=== PATIENT | female | born 1970 | race Caucasian/White ===

== ENCOUNTER 2020-10-24 00:44 | Inpatient (IN) | payer SELFPAY ==
[~2020-10-24] VITALS: Ht 157.5 cm; Wt 58.7 kg
[~2020-10-24 00:44] MED LIST: CLIN300 PO; Cleocin HCl150 MG PO; ESCI5; HYDACE5 PO; LEVSOD100; LEVSOD150; Naprosyn500 MG PO; RANI150
[2020-10-24 05:22] LABS: BASOPHILS ABSOLUTE AUTO 0.03 K/mm3 (0.00-0.23); BASOPHILS PERCENT AUTO 0 % (0-2); EOSINOPHILS ABSOLUTE AUTO 0.05 K/mm3 (0.00-0.68); EOSINOPHILS PERCENT AUTO 1 % (0-6); Hematocrit 47.1 % (33.0-51.0); IMMATURE GRAN ABSOLUTE AUTO 0.05 K/mm3 (0.00-0.10); IMMATURE GRAN PERCENT AUTO 1 % (0-1); LYMPHOCYTES ABSOLUTE AUTO 1.46 K/mm3 (0.84-5.20); LYMPHOCYTES PERCENT AUTO 13 % (21-46); MONOCYTES ABSOLUTE AUTO 0.64 K/mm3 (0.16-1.47); MONOCYTES PERCENT AUTO 6 % (4-13); Mean Corpuscular HGB 28.4 pg (26.0-34.0); Mean Corpuscular HGB Conc 31.8 g/dL (31.5-36.5); Mean Corpuscular Volume 89 fL (80-100); NEUTROPHILS ABSOLUTE AUTO 8.82 K/mm3 (1.96-9.15); NEUTROPHILS PERCENT AUTO 80 % (41-73); Platelet Count 200 K/mm3 (150-400); RDW Coefficient Variation 13.8 % (11.7-14.2); RDW Standard Deviation 44.5 fL (35.1-46.3); Red Blood Cell Count 5.29 M/mm3 (3.80-5.20); White Blood Cell Count 11.05 K/mm3 (4.00-11.30)
[2020-10-24 05:23] LABS: Mean Platelet Volume 13.6 fL (9.1-12.4)
[2020-10-24 05:52] LABS: Alanine Aminotransfer (ALT/SGP 34 U/L (12-78); Albumin, Blood 3.6 g/dL (3.4-5.0); Albumin/Globulin Ratio 1.1 (0.8-1.8); Alk Phos 76 U/L (50-136); Anion Gap 10 mmol/L (6-16); Aspartate Aminotrans (AST/SGOT 37 U/L (12-37); Bilirubin, Total 1.3 mg/dL (0.1-1.0); Blood Urea Nitrogen 16 mg/dL (8-24); Bun/Creatinine Ratio 14.2 (12.0-20.0); CO2, Blood 22 mmol/L (21-32); Calcium, Blood 9.8 mg/dL (8.5-10.1); Chloride, Blood 107 mmol/L (98-108); Creatinine, Blood 1.13 mg/dL (0.40-1.00); Globulin, Blood 3.4 g/dL (2.2-4.0); Glomerular Filtration Rate 54 (60-); Glucose, Blood 117 mg/dL (70-99); Magnesium, Blood 1.9 mg/dL (1.6-2.4); Potassium, Blood 3.4 mmol/L (3.5-5.5); Sodium, Blood 139 mmol/L (136-145); Troponin I <0.015 ng/mL (0.000-0.040)
[2020-10-24 06:58] LABS: Influenza A, PCR Negative (NEGATIVE); Influenza B, PCR Negative (NEGATIVE); Resp Syncytial Virus, PCR Negative (NEGATIVE); SARS-Cov-2 (COVID-19) PCR, MMC Negative (NEGATIVE)
[2020-10-24 07:48] LABS: Source, Urine Clean Catch
[2020-10-24 07:51] LABS: Bilirubin, Urine Neg (Neg); Blood, Urine 4+ (Neg); Color, Urine Yellow (P-Yellow); Glucose Qualitative, Urine Neg (Neg); Ketones, Urine Neg (Neg); Leukocyte Esterase, Urine 1+ (Neg); Nitrite, Urine Neg (Neg); Protein, Urine 4+ (Neg); Urobilinogen, Urine NORM (Normal)
[2020-10-24 08:00] LABS: Appearance, Urine Hazy (Clear); Bacteria Rare /hpf; Squamous Epithelial Cells Rare /hpf (Few); White Blood Cells, Urine 0-2 /hpf (0-5)
[2020-10-24] MEDS ORDERED: ONDA4ODT MM (10:01)
[2020-10-24] MEDS ORDERED: Pepcid20 MG PO (10:01)
[2020-10-24 11:21] LABS: U Amphetamine Screen Not Detected; U Barbituate Screen Not Detected; U Benzodiazapine Screen Not Detected; U Buprenorphine Screen Not Detected; U Cannabinoids Screen Not Detected; U Cocaine Screen Not Detected; U Methadone Screen Not Detected; U Methamphetamine Screen Not Detected; U Opiates Screen Not Detected; U Oxycodone Screen Not Detected; U Phencyclidine Screen Not Detected; U Propoxyphene Screen Not Detected
[2020-10-24] MEDS ORDERED: FAMO20 PO (12:32)
[2020-10-24] MEDS ORDERED: ONDA4ODT SL (12:33)
--- NOTE | 2020-10-24 19:10 | NUR ---
PT ARRIVED TO THE MEDICAL FLOOR AROUND 1330 VIA WHEELCHAIR, PT UP WITHOUT ASSISTANCE TO THE BED STEADY ON HER FEET, THE PT APPEARS TO BE BREATHING EASILY ON RA AT THIS TIME, THE PT WAS ORIENTED TO THE ROOM LAYOUT AND CALL SYSTEM, THE PT TODAY C/O BOTH CHEST AND ABDOMINAL PAIN, THE PT WAS MEDICATED FOR PAIN WITH GOOD RESULTS, A HEATING PAD WAS ALSO APPLIED TO THE ABD, CALL LIGHT IN REACH, NO OTHER CHANGES NOTICED THIS SHIFT
[2020-10-25 04:21] LABS: BASOPHILS ABSOLUTE AUTO 0.06 K/mm3 (0.00-0.23); BASOPHILS PERCENT AUTO 1 % (0-2); EOSINOPHILS ABSOLUTE AUTO 0.03 K/mm3 (0.00-0.68); EOSINOPHILS PERCENT AUTO 0 % (0-6); Hematocrit 41.4 % (33.0-51.0); Hemoglobin 13.1 g/dL (11.5-16.0); IMMATURE GRAN ABSOLUTE AUTO 0.03 K/mm3 (0.00-0.10); IMMATURE GRAN PERCENT AUTO 0 % (0-1); LYMPHOCYTES ABSOLUTE AUTO 2.09 K/mm3 (0.84-5.20); LYMPHOCYTES PERCENT AUTO 28 % (21-46); MONOCYTES ABSOLUTE AUTO 0.73 K/mm3 (0.16-1.47); MONOCYTES PERCENT AUTO 10 % (4-13); Mean Corpuscular HGB 28.4 pg (26.0-34.0); Mean Corpuscular HGB Conc 31.6 g/dL (31.5-36.5); Mean Corpuscular Volume 90 fL (80-100); Mean Platelet Volume 12.8 fL (9.1-12.4); NEUTROPHILS ABSOLUTE AUTO 4.61 K/mm3 (1.96-9.15); NEUTROPHILS PERCENT AUTO 61 % (41-73); NRBC ABSOLUTE 0.04 K/mm3 (0.00-0.02); NRBC Auto 0.5 /100 WBC (0.0-0.2); Platelet Count 175 K/mm3 (150-400); RDW Standard Deviation 45.3 fL (35.1-46.3); Red Blood Cell Count 4.62 M/mm3 (3.80-5.20); White Blood Cell Count 7.55 K/mm3 (4.00-11.30)
[2020-10-25 04:41] LABS: Albumin/Globulin Ratio 1.1 (0.8-1.8); Bilirubin, Total 0.9 mg/dL (0.1-1.0); Calcium, Blood 8.2 mg/dL (8.5-10.1); Creatinine, Blood 1.46 mg/dL (0.40-1.00); Globulin, Blood 2.8 g/dL (2.2-4.0); Potassium, Blood 3.8 mmol/L (3.5-5.5); Total Protein, Blood 5.8 g/dL (6.4-8.2); Troponin I 0.028 ng/mL (0.000-0.040)
--- NOTE | 2020-10-25 04:48 | NUR ---
SHIFT SUMMARY ASSUMED CARE OF PT AT 1900. PT IS A/OX4. HEART SOUNDS REGULAR, TELE SHOWS SINUS. LUNG SOUNDS CLEAR. PT IS INDEPENDENT TO BATHROOM. PT URINE IS DARK AND RED TINGED, PT REPORTS STARTING HER PERIOD AND IS IN THE BEGINNING STAGES OF MENOPAUSE. PT C/O PAIN IN HER ABD, MEDICATED PER EMAR. CALL LIGHT IN REACH, BED IN LOWEST POSITON, WILL CONTINUE TO MONITOR.
--- NOTE | 2020-10-25 11:48 | NUR ---
Echocardiogram completed.
--- NOTE | 2020-10-25 16:35 | NUR ---
PT IS A/OX3, PLEASANT AND COOPERATIVE, THE PT IS UP IND IN HER ROOM, THE PT TODAY COMPLAINED MOSTLY OF A HEADACHE WITH SOME PRESSURE IN HER EARS, THE PT WAS GIVEN TYLENOL THIS AM AND THE NITRO PASTE WAS DC'D THE PT REPORTS THAT HER HEADACHE IS STILL THERE BUT SLOWLY IMPROVING OVER THE DAY, THE PT HAS BEEN ABLE TO SLEEP OFF AND ON T/O THE DAY, CALL LIGHT IN REACH, WILL CONTINUE TO MONITOR AND ASSESS FOR CHANGES
--- NOTE | 2020-10-26 04:09 | NUR ---
SHIFT SUMMARY ASSUMED CARE OF PT AT 1900. PT IS A/OX4. HEART SOUNDS REGULAR, TELE SHOWS SINUS. LUNG SOUNDS CLEAR. PT IS INDEPENDENT TO BATHROOM. URINE STILL HAS SOME BLOOD IN IT DUE TO MENSTATION. PT C/O INDEGESTION, CALLED HOSPITALIST AND ORDERED TUMS BUT PT WAS ASLEEP ON REASSESSMENT. NO OTHER ACUTE EVETNS DURING THE NIGHT. PT SLEPT T/O THE NIGHT. CALL LIGHT IN REACH, BED IN LOWEST POSTION, WILL CONTINUE TO MONITOR.
[2020-10-26 05:38] LABS: BASOPHILS ABSOLUTE AUTO 0.03 K/mm3 (0.00-0.23); BASOPHILS PERCENT AUTO 0 % (0-2); EOSINOPHILS ABSOLUTE AUTO 0.02 K/mm3 (0.00-0.68); EOSINOPHILS PERCENT AUTO 0 % (0-6); Hematocrit 43.2 % (33.0-51.0); Hemoglobin 13.5 g/dL (11.5-16.0); IMMATURE GRAN ABSOLUTE AUTO 0.02 K/mm3 (0.00-0.10); IMMATURE GRAN PERCENT AUTO 0 % (0-1); LYMPHOCYTES ABSOLUTE AUTO 1.55 K/mm3 (0.84-5.20); LYMPHOCYTES PERCENT AUTO 23 % (21-46); MONOCYTES ABSOLUTE AUTO 0.65 K/mm3 (0.16-1.47); MONOCYTES PERCENT AUTO 10 % (4-13); Mean Corpuscular HGB Conc 31.3 g/dL (31.5-36.5); Mean Corpuscular Volume 89 fL (80-100); NEUTROPHILS ABSOLUTE AUTO 4.42 K/mm3 (1.96-9.15); NEUTROPHILS PERCENT AUTO 66 % (41-73); Platelet Count 183 K/mm3 (150-400); RDW Coefficient Variation 13.6 % (11.7-14.2); RDW Standard Deviation 45.1 fL (35.1-46.3); Red Blood Cell Count 4.83 M/mm3 (3.80-5.20); White Blood Cell Count 6.69 K/mm3 (4.00-11.30)
[2020-10-26 05:45] LABS: Mean Platelet Volume 13.4 fL (9.1-12.4)
[2020-10-26 06:06] LABS: Albumin, Blood 3.1 g/dL (3.4-5.0); Anion Gap 7 mmol/L (6-16); Blood Urea Nitrogen 16 mg/dL (8-24); Bun/Creatinine Ratio 11.4 (12.0-20.0); CO2, Blood 31 mmol/L (21-32); Calcium, Blood 8.2 mg/dL (8.5-10.1); Chloride, Blood 104 mmol/L (98-108); Glomerular Filtration Rate 42 (60-); Glucose, Blood 91 mg/dL (70-99); Phosphorus, Blood 2.5 mg/dL (2.5-4.9); Potassium, Blood 3.6 mmol/L (3.5-5.5); Sodium, Blood 142 mmol/L (136-145)
[2020-10-26 09:09] LABS: HBSAG SCREEN Negative (Negative); HEP A AB, IGM Negative (Negative); HEP B CORE AB, IGM Negative (Negative); HEP C VIRUS AB <0.1 (0.0-0.9)
--- NOTE | 2020-10-26 16:45 | NUR ---
1445 PT TO [facility]. 1520 REPORT GIVEN TO MICHELLE IN PCU. 1530 BELONGINGS AND CHART TAKEN TO [facility] 13 BY RENATA.
--- NOTE | 2020-10-26 18:21 | NUR ---
PT ARRIVED IN THE UNIT FROM [facility] PT WAS TRANSFERRED FROM [facility] POST ANGIO, REPORT RECEIVED FROM NILDA RICHARDSON. PT ANGIO WAS CLEAR PER REPORT PT HAS RIGHT RADIAL AND BRACHIAL ACCESS SITE, BRACHIAL ACCESS SITE HAS LAURENCE DRESSING SOILED WITH MODERATE AMOUNT OF BLOOD NO FURTHER BLEEDING NOTED, RIGHT RADIAL WITH TR BAND 9CC OF AIR SITE SOFT NON TENDER NO HEMATOMA NOTED. VITALS STABLE HRR SINUS FOSTER, BP SYSTOLIC 120-140'S, SATS ABOVE 95% ON RA, AFEBRILE. PT C/O RIGHT ARM PAIN TYLENOL GIVEN WITH NO HELP, TRAMADOL GIVEN RECENTLY AWAITING TO TAKE EFFECT. PT SBA FOR TRANFERS ABLE TO MAKE NEEDS KNOWN, WILL MONITOR. TO REPORT TO ONCOMING SHIFT
--- NOTE | 2020-10-27 04:12 | NUR ---
IV INSERTION LEFT IV IN FOREARM INSERTED PRIOR TO START OF SHIFT. DID NOT INSERT THIS IV.
[2020-10-27 04:15] LABS: BASOPHILS ABSOLUTE AUTO 0.04 K/mm3 (0.00-0.23); BASOPHILS PERCENT AUTO 1 % (0-2); EOSINOPHILS ABSOLUTE AUTO 0.07 K/mm3 (0.00-0.68); EOSINOPHILS PERCENT AUTO 1 % (0-6); Hematocrit 45.7 % (33.0-51.0); Hemoglobin 14.4 g/dL (11.5-16.0); IMMATURE GRAN ABSOLUTE AUTO 0.02 K/mm3 (0.00-0.10); IMMATURE GRAN PERCENT AUTO 0 % (0-1); LYMPHOCYTES ABSOLUTE AUTO 1.42 K/mm3 (0.84-5.20); LYMPHOCYTES PERCENT AUTO 27 % (21-46); MONOCYTES ABSOLUTE AUTO 0.61 K/mm3 (0.16-1.47); MONOCYTES PERCENT AUTO 11 % (4-13); Mean Corpuscular HGB 28.7 pg (26.0-34.0); Mean Corpuscular HGB Conc 31.5 g/dL (31.5-36.5); Mean Corpuscular Volume 91 fL (80-100); Mean Platelet Volume 12.6 fL (9.1-12.4); NEUTROPHILS ABSOLUTE AUTO 3.17 K/mm3 (1.96-9.15); NEUTROPHILS PERCENT AUTO 60 % (41-73); Platelet Count 208 K/mm3 (150-400); RDW Standard Deviation 46.4 fL (35.1-46.3); Red Blood Cell Count 5.02 M/mm3 (3.80-5.20); White Blood Cell Count 5.33 K/mm3 (4.00-11.30)
[2020-10-27 04:44] LABS: Albumin, Blood 3.1 g/dL (3.4-5.0); Anion Gap 6 mmol/L (6-16); Blood Urea Nitrogen 24 mg/dL (8-24); Bun/Creatinine Ratio 18.6 (12.0-20.0); CO2, Blood 30 mmol/L (21-32); Calcium, Blood 8.4 mg/dL (8.5-10.1); Chloride, Blood 103 mmol/L (98-108); Creatinine, Blood 1.29 mg/dL (0.40-1.00); Glomerular Filtration Rate 46 (60-); Glucose, Blood 87 mg/dL (70-99); Potassium, Blood 3.7 mmol/L (3.5-5.5); Sodium, Blood 139 mmol/L (136-145)
--- NOTE | 2020-10-27 05:41 | NUR ---
SHIFT SUMMARY PT SLEPT T/O SHIFT. PT ALERT AND ORIENTED X 4. PT ABLE TO TURN SELF IN BED NEEDED. R RADIAL AND BRACHIAL SITES WNL. HR BRADYCARDIC WHILE SLEEPING AND RESTING. PT ASYMPTOMATIC. BP STABLE. PT REPORTS NO CP OR PRESSURE. PT REPORTS DECREASE IN PAIN AT SURGICAL SITE. OXYGEN SATURATION ABOVE 92% ON RA. WILL CONTINUE TO MONITOR UNTIL REPORT GIVEN TO FREDERICK RICHARDSON.
[2020-10-27] MEDS ORDERED: ASPI81CH PO (15:52)
[2020-10-27] MEDS ORDERED: Prinivil10 MG PO (15:52)
[2020-10-27] MEDS ORDERED: FURO40 PO (15:52)
[2020-10-27] MEDS ORDERED: EUTHYROX50 MCG PO (15:52)
[2020-10-27] MEDS ORDERED: TUMS500 MG PO (15:52)
[2020-10-27] MEDS ORDERED: METO25ER PO (15:53)
[2020-10-27] MEDS ORDERED: POTA10T PO (15:54)
--- NOTE | 2020-10-27 16:36 | NUR ---
PATIENT AND DAUGHTER PROVIDED DISCHARGE INFO REGARDING FOLLOW UP PLANS, ANGIO SITE CARE AND PRECAUTIONS, MEDICATION INFO AND REASONS TO RETURN TO THE HOSPITAL. PATIENT VERBALIZED UNDERSTANDING, NO SIGNS OF ACUTE DISTRESS.
== END 2020-10-27 16:50 | disposition home or self-care (01) | DRG 286 ==
LOC: ER 00:44 → PCU 11:52 → MEDS 11:52 → PCU 10-26 15:47
PROVIDERS: Emergency Medicine; ADMIT Internal Medicine
PROC: 4A023N8 Measurement of Cardiac Sampling and Pressure, Bilateral, Percutaneous Approach (ICD-10-PCS; principal; 2020-10-26)
PROC: B211YZZ Fluoroscopy of Multiple Coronary Arteries using Other Contrast (ICD-10-PCS; 2020-10-26)
DX: I13.0 Hypertensive heart and chronic kidney disease with heart failure and stage 1 through stage 4 chronic kidney disease, or unspecified chronic kidney disease (principal); I50.21 Acute systolic (congestive) heart failure; N17.9 Acute kidney failure, unspecified; E03.9 Hypothyroidism, unspecified; Z20.828 Contact with and (suspected) exposure to other viral communicable diseases; N18.30 Chronic kidney disease, stage 3 unspecified; K21.9 Gastro-esophageal reflux disease without esophagitis; E87.6 Hypokalemia; I44.7 Left bundle-branch block, unspecified; I42.8 Other cardiomyopathies; I27.20 Pulmonary hypertension, unspecified; I07.1 Rheumatic tricuspid insufficiency; Z88.1 Allergy status to other antibiotic agents; Z88.0 Allergy status to penicillin; Z88.2 Allergy status to sulfonamides; Z88.8 Allergy status to other drugs, medicaments and biological substances
CPT/HCPCS: 0241U; 36415; 71045; 71260; 76937; 80053; 80069; 80074; 81001; 83690; 83735; 83880; 84443; 84484; 84703; 85025; 85379; 87086; 93005; 93010; 93306; 93460; 96361; 96374; 96375; 99152; 99285-25; A9270; A9270-GY; C1769; C1894; C9113; J1170; J1644; J1650; J1940; J2250; J2405; J3010; J7030; J7040; J7120; Q9967

== ENCOUNTER 2021-02-18 13:21 | Observation (INO) | payer OTHER ==
[~2021-02-18] VITALS: Ht 157.5 cm; Wt 51.3 kg
[~2021-02-18 13:21] MED LIST changes: +ASPI81CH PO; +EUTHYROX50 MCG PO; +FAMO20 PO; +FURO40 PO; +METO25ER PO; +ONDA4ODT MM; +ONDA4ODT SL; +POTA10T PO; +Pepcid20 MG PO; +Prinivil10 MG PO; +TUMS500 MG PO
[2021-02-18] MEDS ORDERED: SPIRONOLACTONE25 MG PO (14:40)
[2021-02-18 14:49] LABS: BASOPHILS ABSOLUTE AUTO 0.02 K/mm3 (0.00-0.23); BASOPHILS PERCENT AUTO 1 % (0-2); EOSINOPHILS ABSOLUTE AUTO 0.04 K/mm3 (0.00-0.68); EOSINOPHILS PERCENT AUTO 1 % (0-6); Hematocrit 40.5 % (33.0-51.0); Hemoglobin 13.3 g/dL (11.5-16.0); IMMATURE GRAN ABSOLUTE AUTO 0.01 K/mm3 (0.00-0.10); IMMATURE GRAN PERCENT AUTO 0 % (0-1); LYMPHOCYTES ABSOLUTE AUTO 1.73 K/mm3 (0.84-5.20); LYMPHOCYTES PERCENT AUTO 44 % (21-46); MONOCYTES ABSOLUTE AUTO 0.36 K/mm3 (0.16-1.47); MONOCYTES PERCENT AUTO 9 % (4-13); Mean Corpuscular HGB 28.7 pg (26.0-34.0); Mean Corpuscular HGB Conc 32.8 g/dL (31.5-36.5); Mean Corpuscular Volume 88 fL (80-100); Mean Platelet Volume 11.8 fL (9.1-12.4); NEUTROPHILS ABSOLUTE AUTO 1.82 K/mm3 (1.96-9.15); NEUTROPHILS PERCENT AUTO 46 % (41-73); Platelet Count 176 K/mm3 (150-400); RDW Standard Deviation 51.3 fL (35.1-46.3); Red Blood Cell Count 4.63 M/mm3 (3.80-5.20); White Blood Cell Count 3.98 K/mm3 (4.00-11.30)
[2021-02-18 15:23] LABS: Alanine Aminotransfer (ALT/SGP 18 U/L (12-78); Albumin, Blood 4.3 g/dL (3.4-5.0); Albumin/Globulin Ratio 1.2 (0.8-1.8); Alk Phos 48 U/L (50-136); Anion Gap 8 mmol/L (6-16); Aspartate Aminotrans (AST/SGOT 9 U/L (12-37); Bilirubin, Total 0.6 mg/dL (0.1-1.0); Blood Urea Nitrogen 52 mg/dL (8-24); Bun/Creatinine Ratio 22.1 (12.0-20.0); CO2, Blood 23 mmol/L (21-32); Calcium, Blood 9.5 mg/dL (8.5-10.1); Chloride, Blood 109 mmol/L (98-108); Creatinine, Blood 2.35 mg/dL (0.40-1.00); Globulin, Blood 3.6 g/dL (2.2-4.0); Glomerular Filtration Rate 23 (60-); Glucose, Blood 82 mg/dL (70-99); Potassium, Blood 4.9 mmol/L (3.5-5.5); Sodium, Blood 140 mmol/L (136-145); Total Protein, Blood 7.9 g/dL (6.4-8.2); Troponin I <0.015 ng/mL (0.000-0.040)
[2021-02-18] MEDS ORDERED: ACET500 PO (16:34)
--- NOTE | 2021-02-18 17:09 | NUR ---
Pt arrived to PCU 14.
--- NOTE | 2021-02-18 18:28 | NUR ---
Pt suddenly c/o pressure like chest discomfort, radiating from sternum to left upper chest and to left shoulder. States it is increasing from 5/10 to 7/10 since arrival to PCU 14. She is still wearing the NTG paste applied in the ED. monitor worker tech reports sinus bradycardia, 44 bpm, and blood pressure is stable, spo2 [address] elevation in lead V1 per telemarketer supervisor is slightly elevated, 0.11 to 0.13 since arrival. Otherwise no changes noted on telemetry. Pt has only oral oxycodone ordered for pain. Call to Dr. Casey; one new order received for morphine unresponsive to other measures for pain relief. At this time, pt is receiving her oral medications, IVF are infusing as ordered, and she is eating and drinking without nausea. No dypnea, no diaphoresis, and she does not appear anxious.
[2021-02-18 19:55] LABS: Source, Urine Voided
[2021-02-18 19:59] LABS: Bilirubin, Urine Neg (Neg); Blood, Urine 2+ (Neg); Glucose Qualitative, Urine Neg (Neg); Ketones, Urine Neg (Neg); Leukocyte Esterase, Urine 1+ (Neg); Nitrite, Urine Neg (Neg); Protein, Urine Neg (Neg); Urobilinogen, Urine NORM (Normal)
[2021-02-18 20:01] LABS: Appearance, Urine Clear (Clear); Color, Urine Pale Yellow (P-Yellow)
[2021-02-18 20:09] LABS: Bacteria Few /hpf; Red Blood Cells, Urine 0-2 /hpf (0-2); Squamous Epithelial Cells Few /hpf (Few)
[2021-02-19 04:06] LABS: Hematocrit 34.3 % (33.0-51.0); Hemoglobin 11.2 g/dL (11.5-16.0); Mean Corpuscular HGB 28.7 pg (26.0-34.0); Mean Corpuscular HGB Conc 32.7 g/dL (31.5-36.5); Mean Corpuscular Volume 88 fL (80-100); Mean Platelet Volume 12.1 fL (9.1-12.4); Platelet Count 152 K/mm3 (150-400); RDW Coefficient Variation 15.9 % (11.7-14.2); RDW Standard Deviation 51.5 fL (35.1-46.3); White Blood Cell Count 3.82 K/mm3 (4.00-11.30)
[2021-02-19 04:40] LABS: Anion Gap 5 mmol/L (6-16); Blood Urea Nitrogen 49 mg/dL (8-24); CO2, Blood 24 mmol/L (21-32); Calcium, Blood 8.3 mg/dL (8.5-10.1); Chloride, Blood 114 mmol/L (98-108); Creatinine, Blood 2.13 mg/dL (0.40-1.00); Glomerular Filtration Rate 26 (60-); Glucose, Blood 86 mg/dL (70-99); Potassium, Blood 4.9 mmol/L (3.5-5.5); Sodium, Blood 143 mmol/L (136-145); Troponin I <0.015 ng/mL (0.000-0.040)
--- NOTE | 2021-02-19 05:08 | NUR ---
SHIFT SUMMARY PT RESTED WELL THROUGH THE NIGHT. ALERT AND ORIENTED - ABLE TO MAKE NEEDS KNOWN. SATS >90% ON ROOM AIR. TELE SINUS FOSTER - DROPPING LOW 35, ASYMPTOMATIC. VOIDS WITH STAND BY ASSIST TO THE BATHROOM - UA COLLECTED RESULTING NEGATIVE. NO BM. DID C/O OF A LITTLE NAUSEA AT THE START OF SHIFT, MEDICATED WITH TUMS AND ZOFRAN - SEE EMAR. NO EMESIS. VSS. NO C/O PAIN. CALL LIGHT WITIN REACH, BED IN LOWEST POSITION. WILL CONTINUE TO MONITOR.
--- NOTE | 2021-02-19 07:52 | NUR ---
Pt states that she is feeling less pressure/discomfort in her chest this morning; it is 2/10 now. STates that she had some nausea last night, and took TUMS which relieved both the nausea and the chest discomfort. STates IV zofran also helped. Pt states that she has needed to take TUMS regularly since October, whereas before it was only rarely that she needed it. This morning blood pressure noted low. PT states that she has no dizzyness/lightheadedness right now, but she does often have it, and has to make her position changes slowly in order to prevent it. States this morning she has a good appetite. Ambulatory to the bathroom at this time to void. Blood pressure noted low but pt denies any lightheadedness/dizzyness with the activity.
--- NOTE | 2021-02-19 12:52 | NUR ---
Pt states she is experiencing same kind of discomfort from abdomen, going up esphagous, described as pressure and aching, like gas pain. She was also given miralax for bowel care this morning. Given TUMS at her request, which she says helped yesterday.
--- NOTE | 2021-02-19 18:09 | NUR ---
Kendra has had minimal pain today, some burning/aching in her upper mid abdomen, which states radiates up to her esophagus. Relief with TUMS following eating her meals. NO nausea. Appetite good. Ambulatory to the bathroom as needed to void, without any pain or discomfort. Heart rate 40s, and blood pressures are soft, but pt denies any dizzyness/lightheadedness with the hypotension.
--- NOTE | 2021-02-19 20:47 | NUR ---
ASSUMED CARE PT IS ALERT AND ORIENTED. VITALS ARE STABLE WITH SATS OF 100% ON ROOM AIR. DENIES SOB. IS REPORTING SOME CHEST DISCOMFORT FROM GI AND A HEADACHE OF 5/10. SHE IS UP WITH SBA TO THE BATHROOM. CALL LIGHT WITHIN REACH. WILL CONTINUE TO MONITOR.
[2021-02-20 03:30] LABS: Hematocrit 34.8 % (33.0-51.0); Hemoglobin 11.1 g/dL (11.5-16.0); Mean Corpuscular HGB 28.8 pg (26.0-34.0); Mean Corpuscular HGB Conc 31.9 g/dL (31.5-36.5); Mean Corpuscular Volume 90 fL (80-100); Platelet Count 125 K/mm3 (150-400); RDW Coefficient Variation 15.9 % (11.7-14.2); RDW Standard Deviation 53.5 fL (35.1-46.3); Red Blood Cell Count 3.86 M/mm3 (3.80-5.20); White Blood Cell Count 3.62 K/mm3 (4.00-11.30)
[2021-02-20 03:44] LABS: Albumin, Blood 3.2 g/dL (3.4-5.0); Anion Gap 5 mmol/L (6-16); Blood Urea Nitrogen 35 mg/dL (8-24); CO2, Blood 22 mmol/L (21-32); Calcium, Blood 8.5 mg/dL (8.5-10.1); Chloride, Blood 115 mmol/L (98-108); Creatinine, Blood 1.75 mg/dL (0.40-1.00); Glomerular Filtration Rate 33 (60-); Glucose, Blood 92 mg/dL (70-99); Phosphorus, Blood 2.9 mg/dL (2.5-4.9); Potassium, Blood 5.3 mmol/L (3.5-5.5); Sodium, Blood 142 mmol/L (136-145)
--- NOTE | 2021-02-20 06:41 | NUR ---
SHIFT SUMMARY PT IS ALERT AND ORIENTED. VITALS HAVE BEEN STABLE AND TELE SHOWS SB @40'S; SATS OF >92% ON ROOM AIR. THER HABE BEEN NO ACUTE CHANGES NOTED. PT IS A SBA TO BATHROOM WITH NO DEVICES NEEDED. PT HAS A KPAD IN PLACE TO HELP WITH NECK AND HEADACHE.
--- NOTE | 2021-02-20 18:36 | NUR ---
SHIFT SUMMARY PT WAS VERY COOPERATIVE THROUGHOUT THE DAY, BP HAS BEEN SOFT TODAY BUT PT DENIES DIZZINESS AND LIGHTHEADEDNESS. PT HAS BEEN RESTING ON AND OFF THROUGHOUT THE DAY. PT HAS BEEN INDEPENDENT TO THE BATHROOM DURING THE DAY. PT HAS REMAINED ON RA TODAY. PT HAS COMPLAINED OF STOMACH DISCOMFORT AND HAS BEEN UNABLE TO HAVE A BM TODAY AND HAS INCREASED GAS. PT HAS BEEN GIVEN ADDITIONAL STOOL SOFTENERS PER EMAR TO HELP WITH THIS ISSUE. PT IS RESTING IN BED AT THIS TIME
--- NOTE | 2021-02-20 19:15 | NUR ---
ASSUMED CARE PT IS ALERT AND ORIENTED. VITALS ARE STABLE; ON ROOM AIR WITH SATS >92%. DENIES CHEST PAIN OR SOB. IV FLUIDS ARE INFUSING THROUGH RIGHT UPPER ARM IV. PT REPORTS TENDER AND BLOATED GI. WILL CONTINUE TO MONITOR PT.
[2021-02-21 04:25] LABS: Albumin, Blood 3.2 g/dL (3.4-5.0); Anion Gap 2 mmol/L (6-16); Blood Urea Nitrogen 25 mg/dL (8-24); Bun/Creatinine Ratio 16.2 (12.0-20.0); CO2, Blood 26 mmol/L (21-32); Calcium, Blood 8.5 mg/dL (8.5-10.1); Chloride, Blood 115 mmol/L (98-108); Creatinine, Blood 1.54 mg/dL (0.40-1.00); Glomerular Filtration Rate 38 (60-); Glucose, Blood 91 mg/dL (70-99); Phosphorus, Blood 2.9 mg/dL (2.5-4.9); Potassium, Blood 5.2 mmol/L (3.5-5.5); Sodium, Blood 143 mmol/L (136-145)
--- NOTE | 2021-02-21 06:09 | NUR ---
SHIFT SUMMARY PT IS ALERT AND ORIENTED. VITALS ARE STABLE; SATS ARE >92% ON ROOM AIR; TELE SHOWS SINUS FOSTER. NO ACUTE CHANGES. DENIES CHEST PAIN OR SOB. HAS REPORTED HAVING GI DISCOMFORT AND FEELING BLOATED. NO BM THROUGH THE NIGHT. PT IS SBA TO BATHROOM. HAS BEEN USING CALL LIGHT APPROPRIETY.
--- NOTE | 2021-02-21 13:13 | NUR ---
TRANSFER TO MEDICAL FLOOR PT WAS TRANSFERRED TO MEDICAL FLOOR LEAVING PCU AT APPROXIMATELY 1255. PT WAS ABLE TO AMBULATE UP TO HER NEW ROOM, 338. PT ON RA, VS STABLE UPON TRANSFER. PT DID PRODUCE SEVERAL SMALL HARD PELLETS OF STOOL PRIOR TO TRANSFER. REPORT WAS GIVEN TO DEBRA IMRELES ON MEDICAL FLOOR.
--- NOTE | 2021-02-21 19:05 | NUR ---
a+o, medicated and treated as prescribed, resting in bed with call light in reach, rm air, saline locked, medicated and monitored until shared bsr with pt and noc nurse, slight pain in abdmn remains, treated with nonpharmalogical means to pt satisfaction
--- NOTE | 2021-02-22 00:55 | NUR ---
PHYSICIAN CORRESPONDENCE GIVEN ALL SCHEDULED BOWEL MEDS. SIMETHICONE, TUMS AND PRN PAIN MEDICATIONS. PATIENT CONTINUES TO C/O PAIN/DISCOMFORT TO ABDOMEN. NEW ORDERS FOR GI COCKTAIL Q6 PRN
--- NOTE | 2021-02-22 04:54 | NUR ---
SHIFT SUMMARY A/O, ABLE TO MAKE NEEDS KNOWN. COOPERATIVE WITH CARE. CALLS AND ANSWERS QUESTIONS APPROPRIATELY. C/O PAIN/DISCOMFORT TO ABDOMEN, DESCRIBED BEING RUNG OUT IN THE MIDDLE. RATED 7/10; MEDICATED PER EMAR WELL NEW ORDER FOR GI COCKTAIL STATED WORKED VERY WELL. UTILIZING HEATING PAD FOR COMFORT. INDEPENDENT IN THE ROOM. ABDOMEN FIRM AND TENDER WITH PALPATION; BT PRESENT TO ALL 4 QUADRANTS. VSS/AFEBRILE. BED REMAINS IN LOWEST POSITION. CALL LIGHT AND BELONGINGS WITHIN REACH. CONTINUE WITH CURRENT PLAN OF CARE. REPORT TO ONCOMING RN.
[2021-02-22 05:44] LABS: Albumin, Blood 3.5 g/dL (3.4-5.0); Anion Gap 5 mmol/L (6-16); Blood Urea Nitrogen 20 mg/dL (8-24); Bun/Creatinine Ratio 14.7 (12.0-20.0); CO2, Blood 25 mmol/L (21-32); Calcium, Blood 8.7 mg/dL (8.5-10.1); Chloride, Blood 111 mmol/L (98-108); Creatinine, Blood 1.36 mg/dL (0.40-1.00); Glomerular Filtration Rate 44 (60-); Glucose, Blood 80 mg/dL (70-99); Phosphorus, Blood 3.3 mg/dL (2.5-4.9); Potassium, Blood 5.1 mmol/L (3.5-5.5); Sodium, Blood 141 mmol/L (136-145)
[2021-02-22] MEDS ORDERED: ASPI81CH PO (12:13)
[2021-02-22] MEDS ORDERED: OMEP20ER PO (12:13)
[2021-02-22] MEDS ORDERED: MIRALAX17 GM PO (12:14)
== END 2021-02-22 13:13 | disposition home or self-care (01) ==
LOC: ER 13:21 → MEDS 13:22 → PCU 13:22 → ER 16:36 → MEDS 16:36 → PCU 16:36 → MEDS 02-21 13:38 → ENPENDDIS 02-22 11:19 → MEDS 02-22 13:13
PROVIDERS: Internal Medicine; Physician Assistant; ADMIT Internal Medicine
DX: R07.89 Other chest pain (principal); R00.1 Bradycardia, unspecified; I50.22 Chronic systolic (congestive) heart failure; I42.8 Other cardiomyopathies; N17.9 Acute kidney failure, unspecified; I95.9 Hypotension, unspecified; I27.22 Pulmonary hypertension due to left heart disease; E86.0 Dehydration; E03.9 Hypothyroidism, unspecified; K21.9 Gastro-esophageal reflux disease without esophagitis; I44.7 Left bundle-branch block, unspecified; T44.7X5A Adverse effect of beta-adrenoreceptor antagonists, initial encounter; F32.9 Major depressive disorder, single episode, unspecified; Z79.01 Long term (current) use of anticoagulants
CPT/HCPCS: 36415; 71046; 76770; 80048; 80053; 80069; 81001; 83690; 83880; 84443; 84484; 85025; 85027; 93005; 93010; 99285-25; A9270; G0378; J2405; J7030

== ENCOUNTER 2021-05-20 08:21 | Day surgery (SDC) | payer OTHER ==
[~2021-05-20] VITALS: Ht 157.5 cm; Wt 57.4 kg
[~2021-05-20 08:21] MED LIST changes: +ACET500 PO; +MIRALAX17 GM PO; +OMEP20ER PO; +SPIRONOLACTONE25 MG PO
--- NOTE | 2021-05-20 09:27 | NUR ---
Ambulatory in Day Surgery History, Chart, Medications and Allergies reviewed before start of procedure.Patient confirms NPO status and agrees with scheduled surgery. Patient states colon prep results clear.Lungs clear T/O to Auscultation. Patient States Post-Procedure ride home has been arranged WITH BOYFRIEND
--- NOTE | 2021-05-20 10:20 | NUR ---
05/20/21 1020 Bindu Jolly History, Chart, Medications and Allergies reviewed before start of procedure.PATIENT DETERMINED TO BE ASA APPROPRIATE FOR PROPOFOL SEDATION PRIOR TO START OF PROCEDURE BY .MONITOR INTACT WITH CONTINUOUS PULSE OXIMETRY AND INTERMITTENT BP.3-LEAD EKG REVIEWED WITH PHYSICIAN PRIOR TO START OF PROCEDURE.O2 VIA N/C INTACT THROUGHOUT SEDATION/PROCEDURE.
--- NOTE | 2021-05-20 11:08 | NUR ---
Patient up to Ambulate independently. Gait steady. Discharge instructions reviewed with patient. Patient verbalizes understanding. Copy given to patient to take home. Discharged via wheelchair to private car for ride home.
== END 2021-05-20 23:12 | disposition home or self-care (01) ==
LOC: ORSCMMR 08:21 → ORD 09:30 → ORSCMMR 23:12
PROVIDERS: Internal Medicine Gastroenterology
PROC: 0DJD8ZZ Inspection of Lower Intestinal Tract, Via Natural or Artificial Opening Endoscopic (ICD-10-PCS; principal; 2021-05-20 09:30)
PROC: 0DB68ZX Excision of Stomach, Via Natural or Artificial Opening Endoscopic, Diagnostic (ICD-10-PCS; principal; 2021-05-20 09:30)
PROC: 0DB98ZX Excision of Duodenum, Via Natural or Artificial Opening Endoscopic, Diagnostic (ICD-10-PCS; principal; 2021-05-20 09:30)
PROC: 0DB48ZX Excision of Esophagogastric Junction, Via Natural or Artificial Opening Endoscopic, Diagnostic (ICD-10-PCS; principal; 2021-05-20 09:30)
PROC: 0DB58ZX Excision of Esophagus, Via Natural or Artificial Opening Endoscopic, Diagnostic (ICD-10-PCS; principal; 2021-05-20 09:30)
DX: R10.13 Epigastric pain (principal); R10.9 Unspecified abdominal pain; R19.4 Change in bowel habit; R14.0 Abdominal distension (gaseous); E03.9 Hypothyroidism, unspecified; Z79.82 Long term (current) use of aspirin; Z79.899 Other long term (current) drug therapy
CPT/HCPCS: 88305; A9270; J2704; J7120

== ENCOUNTER → 2021-12-28 | Outpatient (CLI) | payer OTHER ==
[2021-12-28 17:56] LABS: Source, Urine Voided
[2021-12-28 18:59] LABS: Bilirubin, Urine Neg (Neg); Blood, Urine 3+ (Neg); Glucose Qualitative, Urine Neg (Neg); Ketones, Urine Neg (Neg); Leukocyte Esterase, Urine 1+ (Neg); Nitrite, Urine Neg (Neg); Protein, Urine Neg (Neg); Urobilinogen, Urine NORM (Normal)
[2021-12-28 19:09] LABS: Color, Urine Pale Yellow (P-Yellow)
[2021-12-28 19:10] LABS: Appearance, Urine Hazy (Clear); Bacteria Few /hpf; Squamous Epithelial Cells Few /hpf (Few)
== END ==
LOC: LAB 17:54 → LAB SHORT 17:54
PROVIDERS: Nurse Practitioner Family
DX: R30.0 Dysuria (principal); R10.9 Unspecified abdominal pain; R35.0 Frequency of micturition
CPT/HCPCS: 81001

== ENCOUNTER 2022-11-21 01:28 | Observation (INO) | payer OTHER ==
[~2022-11-21] VITALS: Ht 157.5 cm; Wt 61.2 kg
[2022-11-21 02:13] LABS: BASOPHILS ABSOLUTE AUTO 0.04 K/mm3 (0.00-0.23); BASOPHILS PERCENT AUTO 1 % (0-2); EOSINOPHILS ABSOLUTE AUTO 0.07 K/mm3 (0.00-0.68); EOSINOPHILS PERCENT AUTO 1 % (0-6); Hematocrit 46.1 % (33.0-51.0); Hemoglobin 15.3 g/dL (11.5-16.0); IMMATURE GRAN ABSOLUTE AUTO 0.02 K/mm3 (0.00-0.10); IMMATURE GRAN PERCENT AUTO 0 % (0-1); LYMPHOCYTES ABSOLUTE AUTO 1.98 K/mm3 (0.84-5.20); LYMPHOCYTES PERCENT AUTO 26 % (21-46); MONOCYTES ABSOLUTE AUTO 0.42 K/mm3 (0.16-1.47); MONOCYTES PERCENT AUTO 6 % (4-13); Mean Corpuscular HGB 29.2 pg (26.0-34.0); Mean Corpuscular HGB Conc 33.2 g/dL (31.5-36.5); Mean Corpuscular Volume 88 fL (80-100); Mean Platelet Volume 12.4 fL (9.1-12.4); NEUTROPHILS ABSOLUTE AUTO 4.98 K/mm3 (1.96-9.15); NEUTROPHILS PERCENT AUTO 66 % (41-73); Platelet Count 229 K/mm3 (150-400); RDW Coefficient Variation 13.6 % (11.7-14.2); RDW Standard Deviation 44.3 fL (35.1-46.3); Red Blood Cell Count 5.24 M/mm3 (3.80-5.20); White Blood Cell Count 7.51 K/mm3 (4.00-11.30)
[2022-11-21] MEDS ORDERED: Celexa20 MG PO (02:35)
[2022-11-21] MEDS ORDERED: Prinivil10 MG (02:36)
[2022-11-21 02:41] LABS: Albumin/Globulin Ratio 1.1 (0.8-1.8); Bilirubin, Total 0.4 mg/dL (0.1-1.0); Bun/Creatinine Ratio 12.9 (12.0-20.0); Calcium, Blood 9.9 mg/dL (8.5-10.1); Creatinine, Blood 1.16 mg/dL (0.40-1.00); Globulin, Blood 3.8 g/dL (2.2-4.0); Potassium, Blood 3.7 mmol/L (3.5-5.5); Total Protein, Blood 7.8 g/dL (6.4-8.2)
--- NOTE | 2022-11-21 09:09 | NUR ---
PT TRANSPORTED TO [facility] FOR ED. STATES SHE CONTINUES TO HAVE PAIN 5/10 TO UPPER ABD AND CHEST. STATES IT IS MUCH IMPROVED. SCRATCH NOTED ABOVE AND BELOW UMBILICOUS. STATES SHE WAS SCRATECHED A FEW DAYS AGO BY A CAT. NO SIGNS OF INFECTION NOTED. EARRINGS TAKEN OUT AND PLACED IN SPECIMAN CUP WITH PT LABEL AND PLACED IN BELONGINGS BAG.
--- NOTE | 2022-11-21 10:34 | NUR ---
11/21/22 1034 Erica Peterson PATIENT RECEIVED LEVAQUIN, FLAGYL AND ROCEPHIN IN ER
--- NOTE | 2022-11-21 12:38 | NUR ---
ADMIT NOTE PATIENT NEW ADMIT TO UNIT FROM PACU POD [address] HORTON. OBTAINED REPORT FROM DUST BOX WORKER. PATIENT ARRIVED TO ROOM ABOUT 1230 ON GURNEY. DROWSY BUT WAKES EASILY TO VERBAL STIMULI, FULL ORIENTED. TRANSFERRED PATIENT TO BED WITH SLIDER SHEET. VSS. ORIENTED PATIENT TO ROOM. PROVIDED WATER, JELLO, AND LACTOSE FREE LUNCH TRAY. ABD LAP SITES X4 C/D/I/ ABD TENDER BUT PAIN TOLERABLE AT THIS TIME. DENIES NAUSEA, SOB. 2L O2 VIA NC. WILL CONTINUE TO MONITOR. PATIENT RESTING AT THIS TIME WITH CALL LIGHT IN REACH.
[2022-11-21 13:42] LABS: CPK Creatine Kinase 97 U/L (26-193)
--- NOTE | 2022-11-21 18:30 | NUR ---
SHIFT SUMMARY PATIENT NEW ADMIT TO UNIT POST OP MARILY DUENAS WITH DR HORTON. ALERT AND ORIENTED. SBA UP TO BATHROOM. VOIDING WELL. TOLERATING LACTOSE FREE DIET AND LIQUIDS. PAIN CONTROLLED WITH 1 PO NORCO AND WARM BLANKETS. LAP SITES C/D/I. ROUTINE IV ABX. PLAN TO DISCHARGE HOME TOMORROW 11/22/22.
[2022-11-21 20:01] LABS: CPK Creatine Kinase 137 U/L (26-193)
--- NOTE | 2022-11-21 21:40 | NUR ---
CALLED DR TO ADVISE OF PTS FACIAL RASH AND MILD SWELLING TO EYE AREAS NTOED ON ASSESSMENT.ALSO SPOKE WITH DR REGARDING PRIOR EKG NOTED QT LENGTHENING. UNCLEAR WHAT FACIAL RASH R/T OTHER THAN POSSIBLE ALLLERGY? DR GAVE ORDERS FOR D/C ZOFRAN,GIVE SOLUMEDROL AND BENADRYL IV.
--- NOTE | 2022-11-22 00:15 | NUR ---
PT ALREADY HAVING DECREASED FACIAL REDNESS.TELE ON PT PER CONFIRM OF PREOP ORDER.SINUS FOSTER @ 58.
[2022-11-22 04:33] LABS: BASOPHILS ABSOLUTE AUTO 0.01 K/mm3 (0.00-0.23); BASOPHILS PERCENT AUTO 0 % (0-2); EOSINOPHILS ABSOLUTE AUTO 0.02 K/mm3 (0.00-0.68); EOSINOPHILS PERCENT AUTO 0 % (0-6); Hematocrit 39.2 % (33.0-51.0); Hemoglobin 12.7 g/dL (11.5-16.0); IMMATURE GRAN ABSOLUTE AUTO 0.04 K/mm3 (0.00-0.10); IMMATURE GRAN PERCENT AUTO 1 % (0-1); LYMPHOCYTES ABSOLUTE AUTO 0.36 K/mm3 (0.84-5.20); LYMPHOCYTES PERCENT AUTO 4 % (21-46); MONOCYTES ABSOLUTE AUTO 0.05 K/mm3 (0.16-1.47); MONOCYTES PERCENT AUTO 1 % (4-13); Mean Corpuscular HGB 28.6 pg (26.0-34.0); Mean Corpuscular HGB Conc 32.4 g/dL (31.5-36.5); Mean Corpuscular Volume 88 fL (80-100); Mean Platelet Volume 12.7 fL (9.1-12.4); NEUTROPHILS ABSOLUTE AUTO 8.21 K/mm3 (1.96-9.15); NEUTROPHILS PERCENT AUTO 95 % (41-73); Platelet Count 190 K/mm3 (150-400); RDW Standard Deviation 45.3 fL (35.1-46.3); Red Blood Cell Count 4.44 M/mm3 (3.80-5.20); White Blood Cell Count 8.69 K/mm3 (4.00-11.30)
[2022-11-22 04:53] LABS: Albumin, Blood 3.3 g/dL (3.4-5.0); Bilirubin, Total 0.5 mg/dL (0.1-1.0); Bun/Creatinine Ratio 11.3 (12.0-20.0); Calcium, Blood 8.8 mg/dL (8.5-10.1); Creatinine, Blood 1.59 mg/dL (0.40-1.00); Globulin, Blood 3.3 g/dL (2.2-4.0); Potassium, Blood 4.1 mmol/L (3.5-5.5); Total Protein, Blood 6.6 g/dL (6.4-8.2)
--- NOTE | 2022-11-22 05:13 | NUR ---
SUMMARY NO ACUTE CHANGES TONIGHT. EFFECTIVE PAIN CONTROL. TOLERATING PO AND VOIDING.
--- NOTE | 2022-11-22 08:44 | NUR ---
DR. GTZ ROUNDED ON PT. PLAN TO TRANSITION PT TO PO LASIX INSTEAD OF IV. DR. GTZ STATED SHE IS AWARE OF KIDNEY FUNCTION. NOTIFIED OF LOW BP. PER DR. GTZ PLAN FOR DISCHARGE HOME TODAY.
--- NOTE | 2022-11-22 08:58 | NUR ---
TELE CHANGES SANDER DUMAS NOTIFIED THIS RN OF MILD ST CHANGES. PT DENIES CHEST PAIN AND SHORTNESS OF BREATH. VSS. DR. GTZ NOTIFIED. PER DR. GTZ NO NEED FOR AN EKG THIS AM SINCE PT IS NOT HAVING CHEST PAIN. WILL CONTINUE TO MONITOR FOR CHANGES. PT IS REPORTING NAUSEA AFTER EATING BREAKFAST, ZOFRAN ORDERED BY DR. GTZ. WILL CONTINUE TO MONITOR.
--- NOTE | 2022-11-22 09:02 | NUR ---
DR. HORTON ROUNDED ON PT. OK FOR PT TO DISCHARGE FROM HIS STANDPOINT.
--- NOTE | 2022-11-22 09:42 | NUR ---
Pt. is awake in bed and welcomes my visit. Pt. is pleasant. Facilitate a recent life review. Listen theraputically with a calming presence and normalize the pt. expereince as she anticipate discharge today. Prayed with Pt. Pt. verbalized gratitude for the spiritual care visit.
--- NOTE | 2022-11-22 11:41 | NUR ---
UPDATE PROVIDED TO DR. CECE ZHAO UPDATED REGARDING PT'S ORTHOSTATIC VS, PT DOES HAVE DROP IN BP WHEN SITTING BUT DENIES FEELING DIZZY. UPDATE ALSO PROVIDED REGARDING ST CHANGES REPORTED BY SANDER DUMAS [employer], THIS AM. PER SANDER ST CHANGES HAVE RESOLVED AND REDUCED TO NORMAL. PT HAS HAD NO CARDIAC SYMPTOMS. WORK RELEASE FOR PT REQUESTED. AWAITING DISCHARGE ORDERS FROM DR. ZHAO.
--- NOTE | 2022-11-22 14:20 | NUR ---
WRITTEN AND VERBAL DISCHARGE INSTRUCTIONS PROVIDED, PT REPORTED UNDERSTANDING. PT IS WAITING FOR HER FAMILY TO TAKE HER HOME, SHE STATES THEY WILL BE HERE TO GET HER AROUND 5PM.
--- NOTE | 2022-11-22 17:57 | NUR ---
DISCHARGE PT ASSISTED OUT TO THE HER FAMILY'S VEHICLE AT 1755. AT TIME OF DISCHARGE PAIN WAS MANAGED. VSS, BP LOW NORMAL, PT DENIED FEELING DIZZY. PT SENT HOME WITH INSTRUCTIONS, WORK RELEASE AND PRESCRIPTION FOR PAIN MEDICATION.
== END 2022-11-22 17:49 | disposition home or self-care (01) ==
LOC: ER 01:28 → SURS 01:29 → ER 06:47 → SURS 06:47 → ER 11-22 10:19 → SURS 11-22 10:20
PROVIDERS: Student in an Organized Health Care Education/Training Program; ADMIT Internal Medicine
PROC: 0FT44ZZ Resection of Gallbladder, Percutaneous Endoscopic Approach (ICD-10-PCS; principal; 2022-11-22)
DX: K80.12 Calculus of gallbladder with acute and chronic cholecystitis without obstruction (principal); Z88.2 Allergy status to sulfonamides; Z88.0 Allergy status to penicillin; Z88.1 Allergy status to other antibiotic agents; I44.7 Left bundle-branch block, unspecified; I42.8 Other cardiomyopathies; I50.42 Chronic combined systolic (congestive) and diastolic (congestive) heart failure; K21.9 Gastro-esophageal reflux disease without esophagitis
CPT/HCPCS: 36415; 71045; 71275; 74174; 76705; 80053; 82550; 83690; 83880; 84484; 85025; 88304; 93005; 93010; 96365-59; 96367-59; 96372; 96375-59; 99285-25; A9270; G0378; J0696; J1100; J1200; J1650; J1885; J1940; J1956; J2250; J2405; J2704; J2710; J2765; J2795; J2930; J3010; J7050; J7120; Q9967

== ENCOUNTER → 2024-06-04 | Outpatient (CLI) | payer OTHER ==
[~2024-06-04] MED LIST changes: +Celexa20 MG PO; +Prinivil10 MG
[2024-06-04 08:45] LABS: BASOPHILS ABSOLUTE AUTO 0.02 K/mm3 (0.00-0.23); BASOPHILS PERCENT AUTO 0 % (0-2); EOSINOPHILS ABSOLUTE AUTO 0.05 K/mm3 (0.00-0.68); EOSINOPHILS PERCENT AUTO 1 % (0-6); Hematocrit 42.1 % (33.0-51.0); Hemoglobin 13.2 g/dL (11.5-16.0); IMMATURE GRAN ABSOLUTE AUTO 0.01 K/mm3 (0.00-0.10); IMMATURE GRAN PERCENT AUTO 0 % (0-1); LYMPHOCYTES ABSOLUTE AUTO 1.29 K/mm3 (0.84-5.20); LYMPHOCYTES PERCENT AUTO 22 % (21-46); MONOCYTES ABSOLUTE AUTO 0.31 K/mm3 (0.16-1.47); MONOCYTES PERCENT AUTO 5 % (4-13); Mean Corpuscular HGB 28.3 pg (26.0-34.0); Mean Corpuscular HGB Conc 31.4 g/dL (31.5-36.5); Mean Corpuscular Volume 90 fL (80-100); NEUTROPHILS ABSOLUTE AUTO 4.17 K/mm3 (1.96-9.15); NEUTROPHILS PERCENT AUTO 71 % (41-73); Platelet Count 224 K/mm3 (150-400); RDW Coefficient Variation 14.2 % (11.7-14.2); RDW Standard Deviation 46.7 fL (35.1-46.3); Red Blood Cell Count 4.66 M/mm3 (3.80-5.20); White Blood Cell Count 5.85 K/mm3 (4.00-11.30)
[2024-06-04 08:57] LABS: Albumin, Blood 3.6 g/dL (3.4-5.0); Albumin/Globulin Ratio 0.9 (0.8-1.8); Bilirubin, Total 0.2 mg/dL (0.1-1.0); Bun/Creatinine Ratio 5.7 (12.0-20.0); Calcium, Blood 9.3 mg/dL (8.5-10.1); Creatinine, Blood 1.57 mg/dL (0.40-1.00); Globulin, Blood 4.1 g/dL (2.2-4.0); Total Protein, Blood 7.7 g/dL (6.4-8.2)
== END | disposition home or self-care (01) ==
LOC: LAB SHORT 08:26 → LAB 08:26
PROVIDERS: Physician Assistant
DX: R31.9 Hematuria, unspecified (principal); R10.9 Unspecified abdominal pain
CPT/HCPCS: 80053; 85025; 87086